=== PATIENT | female | born 1990 | race Caucasian/White ===

== ENCOUNTER 2023-12-25 20:47 | Inpatient (IN) | payer OTHER, SELFPAY ==
[2023-12-25 20:56] VITALS: BMI 26.5
[2023-12-25 21:32] VITALS: BP 113/74
[2023-12-25] MEDS: LR 1000 IV (21:45)
[2023-12-25 21:57] LABS: % Basophils 0.2 % (0-2); % Eosinophils 0.7 % (0-6); % Immature Granulocytes 0.3 % (0-0.5); % Neutrophils 62.8 % (42.2-75.2); Absolute Eosinophils 0.1 10^3/uL (0-0.7); Absolute Monocytes 0.5 10^3/uL (0.1-0.6); Hematocrit 28.8 % (37.0-47.0); Hemoglobin 10.3 g/dL (12.0-16.0); Mean Corp Hgb Conc. 35.8 g/dL (33.0-37.0); Mean Corpuscular Hgb 33.8 pg (27.0-31.0); Mean Corpuscular Volume 94.4 fL (81.0-99.0); Mean Platelet Volume 10.5 fL (7.4-10.4); Nucleated Red Blood Cells % 0 %; Platelet Count 150 10^3/uL (130-400); Red Blood Cell Count 3.05 10^6/uL (4.20-5.40); Red Cell Dist. Width 12.8 % (11.5-14.5); White Blood Cell Count 9.5 10^3/uL (4.8-10.8)
[2023-12-25] MEDS: CYTOTEC 25 MICROGRAM VAG (22:03)
[2023-12-26] MEDS: CYTOTEC 50 MICROGRAM PO (02:00)
[2023-12-26] MEDS: CYTOTEC PO ×3 (06:24→15:12)
[2023-12-26] MEDS: PITOCIN 30 UNITS/NSS 500 ML IV (08:43)
[2023-12-26] MEDS: SUBLIMAZE 100 MCG EPIDURAL (14:56)
[2023-12-26] MEDS: FENTANYL/BUPIVACAINE 100 EPIDURAL (14:56)
[2023-12-26] MEDS: ZOFRAN 4 MG IV (19:18)
[2023-12-26] MEDS: TRANEXAMIC ACID 100 IV (20:10)
[2023-12-26] MEDS: TYLENOL 650 MG PO (23:06)
[2023-12-27] MEDS: MOTRIN 600 MG PO ×2 (04:04→17:32)
[2023-12-27 04:45] LABS: Hematocrit 27.2 % (37.0-47.0); Hemoglobin 9.6 g/dL (12.0-16.0)
[2023-12-27] MEDS: SENOKOT-S 1 TABLET PO (11:41)
[2023-12-27] MEDS: FEOSOL 325 MG PO (11:41)
[2023-12-27] MEDS: FEOSOL PO (20:03)
[2023-12-28] MEDS: FEOSOL 325 MG PO (09:25)
[2023-12-28] MEDS: SENOKOT-S 1 TABLET PO (09:25)
[2023-12-30 13:41] LABS: Syphilis/T. pallidum Ab Reflex Negative (Negative)
== END 2023-12-28 14:34 | disposition home or self-care (01) | DRG 807 ==
LOC: LDRP 20:47
PROVIDERS: Obstetrics & Gynecology; ADMITTING PHYSICIAN Obstetrics & Gynecology; FAMILY PHYSICIAN Internal Medicine
PROC: 3E0P7VZ Introduction of Hormone into Female Reproductive, Via Natural or Artificial Opening (ICD-10-PCS; 2023-12-25)
PROC: 3E033VJ Introduction of Other Hormone into Peripheral Vein, Percutaneous Approach (ICD-10-PCS; 2023-12-25)
PROC: 10E0XZZ Delivery of Products of Conception, External Approach (ICD-10-PCS; 2023-12-26)
PROC: 10907ZC Drainage of Amniotic Fluid, Therapeutic from Products of Conception, Via Natural or Artificial Opening (ICD-10-PCS; 2023-12-26)
DX: O48.0 Post-term pregnancy (principal); Z37.0 Single live birth; Z3A.40 40 weeks gestation of pregnancy; Z88.0 Allergy status to penicillin; Z86.16 Personal history of COVID-19
CPT/HCPCS: 36415; 85014; 85018; 85025; 86780; 86850; 86900; 86901

== ENCOUNTER 2025-05-25 16:44 | Inpatient (IN) | payer OTHER, SELFPAY ==
[2025-05-25 16:58] VITALS: BMI 27.8
[2025-05-25 17:00] VITALS: BP 129/78
[2025-05-25] MEDS: LR 1000 IV (17:00)
[2025-05-25] MEDS: PITOCIN 30 UNITS/NSS 500 ML IV (17:24)
[2025-05-25 17:29] LABS: Hematocrit 32.2 % (37.0-47.0); Hemoglobin 11.1 g/dL (12.0-16.0); Mean Corp Hgb Conc. 34.5 g/dL (33.0-37.0); Mean Corpuscular Volume 88.5 fL (81.0-99.0); Nucleated Red Blood Cells % 0 %; Platelet Count 183 10^3/uL (130-400); Red Cell Dist. Width 13.2 % (11.5-14.5)
[2025-05-25] MEDS: COLACE 100 MG PO (19:16)
[2025-05-25] MEDS: MOTRIN 600 MG PO (19:16)
[2025-05-26] MEDS: TYLENOL 650 MG PO (00:55)
[2025-05-26] MEDS: MOTRIN 600 MG PO ×4 (01:04→21:20)
[2025-05-26 05:33] LABS: Hematocrit 27.3 % (37.0-47.0); Hemoglobin 9.5 g/dL (12.0-16.0)
[2025-05-26] MEDS: PRENATAL PLUS 1 TABLET PO (08:43)
[2025-05-26] MEDS: COLACE 100 MG PO ×2 (08:43→21:20)
[2025-05-27] MEDS: MOTRIN 600 MG PO (06:10)
[2025-05-27] MEDS: PRENATAL PLUS 1 TABLET PO (07:51)
[2025-05-27] MEDS: FEOSOL 325 MG PO (07:51)
[2025-05-27] MEDS: COLACE 100 MG PO (07:51)
[2025-05-27 11:28] LABS: Syphilis/T. pallidum Ab Reflex Negative (Negative)
== END 2025-05-27 11:55 | disposition home or self-care (01) | DRG 807 ==
LOC: LDRP 16:44
PROVIDERS: ADMITTING PHYSICIAN Obstetrics & Gynecology; FAMILY PHYSICIAN Internal Medicine
PROC: 10E0XZZ Delivery of Products of Conception, External Approach (ICD-10-PCS; 2025-05-25)
DX: O42.02 Full-term premature rupture of membranes, onset of labor within 24 hours of rupture (principal); Z37.0 Single live birth; O48.0 Post-term pregnancy; Z3A.40 40 weeks gestation of pregnancy; O77.0 Labor and delivery complicated by meconium in amniotic fluid; O99.824 Streptococcus B carrier state complicating childbirth; O69.1XX0 Labor and delivery complicated by cord around neck, with compression, not applicable or unspecified; O62.3 Precipitate labor; O90.81 Anemia of the puerperium; D64.9 Anemia, unspecified; Z88.0 Allergy status to penicillin
CPT/HCPCS: 85014; 85018; 85025; 86780; 86850; 86900; 86901; 88307